=== PATIENT | female | born 1975 | race Caucasian/White ===

== ENCOUNTER 2016-09-22 18:54 | Emergency (ER) | payer BC ==
[~2016-09-22] VITALS: Ht 162.6 cm; Wt 61.0 kg
[~2016-09-22 18:54] MED LIST: HYDR-906 PO; NAPR-688 PO; ONDA4TAB8 PO; OXYC-279 PO; [UNRECOGNIZED DRUG - CODE] RC
[2016-09-22 18:58] VITALS: Ht 162.6 cm; Wt 61.0 kg
[2016-09-22] MEDS ORDERED: ONDANSETRON 4 MG INJ IV STA (21:50)
[2016-09-22] MEDS ORDERED: morphine 4 MG/ML VIAL IV STA ×2 (21:50→23:01)
[2016-09-22] MEDS ORDERED: SOD CHLORIDE 0.9% 1,000 ML IV ONE (22:00)
[2016-09-22 22:50] LABS: BASOPHIL # 0.1 10^3/ul (0.0-0.1); BASOPHILS % 0.9 % (0.0-2.0); EOSINOPHILS # 0.4 10^3/ul (0.0-0.5); EOSINOPHILS % 6.1 % (0.0-7.0); HEMATOCRIT 36.6 % (37.0-47.0); HEMOGLOBIN 12.1 g/dl (12.0-16.0); LYMPHOCYTES # 3.2 10^3/ul (0.8-2.9); LYMPHOCYTES % 45.1 % (15.0-51.0); MEAN CORPUSCULAR HEMOGLOBIN 26.9 pg (29.0-33.0); MEAN CORPUSCULAR HGB CONC 33.1 g/dl (32.0-37.0); MEAN CORPUSCULAR VOLUME 81.4 fl (82.0-101.0); MEAN PLATELET VOLUME 7.4 fl (7.4-10.4); MONOCYTE # 0.6 10^3/ul (0.3-0.9); MONOCYTES % 7.8 % (0.0-11.0); NEUTROPHIL # 2.9 10^3/ul (1.6-7.5); NEUTROPHILS % 40.1 % (39.0-77.0); PLATELET COUNT 361 10^3/UL (140-440); RED BLOOD COUNT 4.49 10^6/ul (4.20-5.40); RED CELL DISTRIBUTION WIDTH 16.7 % (11.5-14.5); UNCORRECTED WBC 7.1 10^3/ul (4.8-10.8); WHITE BLOOD COUNT 7.1 10^3/ul (4.8-10.8)
[2016-09-22 22:56] LABS: CONDITION 1; LH ANALYZER COMMENTS 1
[2016-09-22 23:08] LABS: ADD UMIC YES; URINE BILIRUBIN (Dip) NEGATIVE (NEGATIVE); URINE BLOOD (Dip) NEGATIVE (NEGATIVE); URINE COLOR LT. YELLOW (YELLOW); URINE GLUCOSE (Dip) NEGATIVE (NEGATIVE); URINE KETONES (Dip) NEGATIVE (NEGATIVE); URINE LEUKOCYTE ESTERASE (Dip) TRACE (NEGATIVE); URINE NITRITE (Dip) NEGATIVE (NEGATIVE); URINE TOTAL PROTEIN (Dip) NEGATIVE (NEGATIVE); URINE UROBILINOGEN (Dip) 0.2 E.U./dL (0.1-1.0)
[2016-09-22 23:09] LABS: ALBUMIN 3.6 g/dl (3.3-4.9)
[2016-09-22 23:10] LABS: POTASSIUM 4.1 mmol/L (3.5-5.1)
[2016-09-22 23:12] LABS: BILIRUBIN,INDIRECT 0.1 mg/dl (0-1.1); BILIRUBIN,TOTAL 0.1 mg/dl (0.2-1.3); CREATININE 0.67 mg/dl (0.44-1.00)
[2016-09-22 23:13] LABS: ALBUMIN/GLOBULIN RATIO 0.97; CALCIUM 8.6 mg/dl (8.4-10.2); TOTAL PROTEIN 7.3 g/dl (6.1-8.1)
[2016-09-22 23:21] LABS: SQUAMOUS EPITHELIAL CELL,UR MODERATE; URINE RBCS NONE SEEN /HPF (0)
[2016-09-22 23:22] LABS: BACTERIA,URINE FEW; MUCUS,URINE FEW
[2016-09-22] MEDS ORDERED: LIDOCAINE/MYLANTA 40 ML BTL PO ONE (23:30)
--- NOTE | 2016-09-22 23:34 | RADRPT ---
PROCEDURE: CT Abdomen and Pelvis without contrast. CLINICAL INDICATION: Abdominal pain, status post recent cholecystectomy. TECHNIQUE: A CT scan of the abdomen and pelvis was performed without intravenous contrast. Rodriguez l and sagittal reformatted images were generated. Images were reviewed on a high-resolution PACS wor kstation. CTDIvol: 7.48 mGy. DLP: 397.17 mGy-cm. COMPARISON: CT of the abdomen and pelvis dated 07/20/2016, abdominal ultrasound dated 07/21/2016. FINDINGS: There is mild atelectasis in both lower lobes. Evaluation of the abdominal and pelvic viscera is limited by the lack of oral and intravenous contra st. The liver is unremarkable. The patient is status post cholecystectomy. No fluid collection is identi fied in the cholecystectomy bed. The common bile duct is not dilated. The spleen is not enlarged. No pancreatic lesion is identified and there is no pancreatic ductal dilatation. The adrenal glands ar e unremarkable. The kidneys are normal in size. There is no perinephric fat stranding. No hydronephrosis is seen. No urinary stone is identified. The small and large bowel are normal in caliber. There is no bowel wall thickening. The appendix is normal. The urinary bladder is unremarkable. The pelvic organs are within normal limits. There is a small vo lume of pelvic ascites. No lymphadenopathy is identified. No pneumoperitoneum is seen. There are no arterial calcifications. No suspicious osseous lesion is idenitified. IMPRESSION: 1. Status post cholecystectomy. There is no evidence of postoperative complication. 2. Normal appendix. 3. No obstructive uropathy or urinary stone. 4. Small volume of pelvic ascites. RPTAT: HTAR .Sy Weeks MD, Date Time Electronically viewed and signed by .Sy Weeks MD, MD on 09/22/2016 23:33 .R/
[2016-09-23] MEDS ORDERED: OXYC-279 PO (00:45)
[2016-09-23] MEDS ORDERED: ONDA4TAB11 PO (00:47)
[2016-09-23 00:57] VITALS: BP 101/77; PULSE 76; RESP 20; TEMP 98.5
--- NOTE | 2016-09-23 00:59 | ERD ---
ER Documentation Chief Complaint Date/Time DATE: 09/23/16 TIME: 00:49 Chief Complaint sp cholecystectomy,upper abd pain today HPI 41-year-old female presents with epigastric and right upper quadrant abdominal pain has been present since her surgery on September 05. Showed a cholecystectomy at that time. She just ran out of her Percocet prescription has increasing pain. EKG has nausea denies fever chills. Denies constipation states she is on medicine for that. ROS All systems reviewed and are negative except as per history of present illness. Medications Home Meds Active Scripts Ondansetron (Zofran Odt) 4 Mg Tab.rapdis, 4 MG PO Q6, #10 Prov:DARRONITA DO 09/23/16 Oxycodone HCl/Acetaminophen (Percocet 5-325 mg Tablet) 1 Each Tablet, 1 EACH PO Q6, #16 TAB Prov:DARRONITA DO 09/23/16 Oxycodone HCl/Acetaminophen (Percocet 5-325 mg Tablet) 1 Each Tablet, 1 EACH PO Q6 Y for SEVERE PAIN LEVEL 7-10, #10 TAB Prov:DARRONITA DO 07/22/16 Naproxen* (Naproxen*) 500 Mg Tablet, 500 MG PO BID Y for PAIN, #20 TAB Prov:DARRONITA DO 07/22/16 Promethazine HCl (Promethazine HCl) 12.5 Mg Supp.rect, 12.5 MG RC QHS for 7 Days , SUPP.RECT Prov:SHIRLEY POWELL DO 07/21/16 Ondansetron Hcl* (Zofran*) 4 Mg Tablet, 4 MG PO Q8H Y for NAUSEA AND/OR VOMITING , #15 TAB Prov:SHIRLEY POWELL DO 07/20/16 Hydrocodone/Acetaminophen (Bend 5-325 Tablet) 1 Each Tablet, 1 TAB PO Q6H Y for PAIN, #20 TAB Prov:SHIRLEY POWELL DO 07/20/16 Allergies Allergies: Coded Allergies: No Known Allergy (Unverified , 07/21/16) PMhx/Soc History of Surgery: Yes (cholecystectomy 09/05/16) Anesthesia Reaction: No Hx Neurological Disorder: No Hx Respiratory Disorders: No Hx Cardiac Disorders: No Hx Psychiatric Problems: No Hx Miscellaneous Medical Probl: No Hx Alcohol Use: No Hx Substance Use: No Hx Tobacco Use: No Smoking Status: Never smoker Physical Exam Vitals Vital Signs Date Time Temp Pulse Resp B/P Pulse Ox O2 Delivery O2 Flow Rate FiO2 09/22/16 22:20 98.2 72 16 133/93 100 Room Air 09/22/16 18:58 98.5 89 20 128/88 100 Physical Exam Const: [] No distress Head: Atraumatic Eyes: Normal Conjunctiva ENT: Normal External Ears, Nose and Mouth. Neck: Full range of motion..~ No meningismus. Resp: Clear to auscultation bilaterally Cardio: Regular rate and rhythm, no murmurs Abd: Soft, , Mild right upper quadrant epigastric abdominal tenderness without guarding or rebound,non distended. Normal bowel sounds Skin: No petechiae or rashes Back: No midline or flank tenderness Ext: No cyanosis, or edema Neur: Awake and alert nor a 3, no focal deficits Psych: Normal Mood and Affect Result Diagram: 09/22/16221209/22/163 Results 24 hrs Laboratory Tests Test 09/22/16 22:13 Alanine Aminotransferase (ALT/SGPT) 23IU/L Albumin 3.6g/dl Albumin/Globulin Ratio 0.97 Alkaline Phosphatase 84IU/L Anion Gap 13 Aspartate Amino Transf (AST/SGOT) 23IU/L Basophils # 0.110^3/ul Basophils % 0.9% Blood Morphology Comment Blood Urea Nitrogen 13mg/dl Calcium Level 8.6mg/dl Carbon Dioxide Level 28mmol/L Chloride Level 102mmol/L Creatinine 0.67mg/dl Direct Bilirubin 0.00mg/dl Eosinophils # 0.410^3/ul Eosinophils % 6.1% Globulin 3.70g/dl Glucose Level 95mg/dl Hematocrit 36.6% Hemoglobin 12.1g/dl Indirect Bilirubin 0.1mg/dl Lipase 123U/L Lymphocytes # 3.210^3/ul Lymphocytes % 45.1% Mean Corpuscular Hemoglobin 26.9pg Mean Corpuscular Hemoglobin Concent 33.1g/dl Mean Corpuscular Volume 81.4fl Mean Platelet Volume 7.4fl Monocytes # 0.610^3/ul Monocytes % 7.8% Neutrophils # 2.910^3/ul Neutrophils % 40.1% Nucleated Red Blood Cells # 0.010^3/ul Nucleated Red Blood Cells % 0.0/100WBC Platelet Count 32319^3/UL Potassium Level 4.1mmol/L Red Blood Count 4.4910^6/ul Red Cell Distribution Width 16.7% Sodium Level 139mmol/L Total Bilirubin 0.1mg/dl Total Protein 7.3g/dl Urine Bacteria FEW Urine Bilirubin NEGATIVE Urine Clarity SLIGHTLY CLOUDY Urine Color LT. YELLOW Urine Glucose NEGATIVE% Urine Hemoglobin NEGATIVE Urine Ketones NEGATIVE Urine Leukocyte Esterase TRACE Urine Microscopic RBC NONE SEEN/HPF Urine Microscopic WBC 25-50/HPF Urine Mucus FEW Urine Nitrite NEGATIVE Urine Specific [place] 1.020 Urine Squamous Epithelial Cells MODERATE Urine Total Protein NEGATIVE Urine Urobilinogen 0.2 E.U./dL Urine pH 7.0 White Blood Count 7.110^3/ul Current Medications Medications (Trade) Dose Ordered Sig/Negro Route PRN Reason Start Time Stop Time Status Last Admin Dose Admin Sodium Chloride (NS) 1,000 ml @ 1,000 mls/hr Q1H ONCE IV 09/22/16 22:00 09/22/16 22:59 DC 09/22/16 22:35 Morphine Sulfate (morphine) 4 mg ONCE STAT IV 09/22/16 21:50 09/22/16 21:52 DC 09/22/16 22:35 Ondansetron HCl (Zofran Inj) 4 mg ONCE STAT IV 09/22/16 21:50 09/22/16 21:52 DC 09/22/16 22:35 Miscellaneous Medication (Gi Cocktail (2)) 40 ml ONCE ONCE PO 09/22/16 23:30 09/22/16 23:31 DC 09/22/16 23:38 Morphine Sulfate (morphine) 4 mg ONCE STAT IV 09/22/16 23:01 09/22/16 23:02 DC 09/22/16 23:05 Procedures/MDM 41-year-old female postop abdominal pain. She did run out of her Percocet recently. She was given morphine as well as a GI cocktail emergency room. It resolved her pain. There is no surgical emergency found and her workup. Neurologic abdominal fluid collection could be an abscess, no signs of internal bleeding. There is no free air that would suggest perforated viscus. She was also hydrated with liter of normal saline and given Zofran with the pain medication. She has stable vital signs and no signs of sepsis or postop infection. He is feeling much better the emergency room. I called and spoke with Dr. Duque, the surgeon who performed the surgery, he agrees with discharge and will see her in his office. Discharging her with Dr. lau information instructions to call tomorrow for a follow-up appointment. Ernesto discharging with 16 Percocet and some Zofran ODT.. CT abdomen and pelvis interpretation: Normal postop changes, I see no free air, no obstruction, no constipation, no abnormal fat stranding, no bony abnormalities. Departure Diagnosis: Primary Impression: Acute abdominal pain Additional Impression: Post-op pain Condition: Stable Patient Instructions: Abdominal Pain, Unknown Cause, (Female), Post Op Wound Check, Pain Referrals: SAMUEL HUSSEIN MD Additional Instructions: Call your surgeon doctor TOMORROW for an appointment during the next 2-3 days.See the doctor sooner or return here if your condition worsens before your appointment time. ITA ROB DO Sep 23, 2016 00:58
== END 2016-09-23 01:07 | disposition home or self-care (01) ==
LOC: E/R 18:54
DX: R10.13 Epigastric pain (principal); R11.0 Nausea; R10.11 Right upper quadrant pain; G89.18 Other acute postprocedural pain
CPT/HCPCS: 36415; 74176; 80053; 81001; 83690; 85025; 93005; 96374; 96375; 96376; J2270; J2405; J7030; Z7502; Z7610; 81003

== ENCOUNTER 2016-12-30 19:38 | Emergency (ER) | payer BC ==
[~2016-12-30] VITALS: Ht 157.5 cm; Wt 59.0 kg
[~2016-12-30 19:38] MED LIST changes: +ONDA4TAB11 PO
[2016-12-30 20:17] VITALS: Ht 157.5 cm; Wt 59.0 kg
[2016-12-30] MEDS ORDERED: ACETAMINOPHEN 500 MG TAB PO STA (20:45)
[2016-12-30] MEDS ORDERED: ONDANSETRON (ODT) 4 MG TAB ODT STA (20:45)
[2016-12-30 21:21] LABS: ADD UMIC YES; URINE BILIRUBIN (Dip) NEGATIVE (NEGATIVE); URINE BLOOD (Dip) 2+ (NEGATIVE); URINE COLOR YELLOW (YELLOW); URINE GLUCOSE (Dip) NEGATIVE (NEGATIVE); URINE KETONES (Dip) 40 (NEGATIVE); URINE LEUKOCYTE ESTERASE (Dip) TRACE (NEGATIVE); URINE NITRITE (Dip) NEGATIVE (NEGATIVE); URINE TOTAL PROTEIN (Dip) TRACE (NEGATIVE); URINE UROBILINOGEN (Dip) 1.0 E.U./dL (0.1-1.0)
[2016-12-30 21:39] LABS: BACTERIA,URINE FEW; MUCUS,URINE MODERATE; SQUAMOUS EPITHELIAL CELL,UR MODERATE
--- NOTE | 2016-12-30 21:50 | RADRPT ---
PROCEDURE: XR Chest. CLINICAL INDICATION: Fever. TECHNIQUE: Portable AP upright view of the chest was obtained. COMPARISON: 07/19/2016 FINDINGS: The cardiomediastinal silhouette is within normal limits. The lungs are clear. There is no evidenc e for pleural effusion, pneumothorax or pulmonary vascular congestion. The osseous structures are i ntact with no evidence for acute abnormality. RPTAT:HJJR IMPRESSION: No evidence for acute intrathoracic pathology or change from 07/19/2016. Physician Mary Date Time Electronically viewed and signed by Tommie Whitfield Physician on 12/30/2016 21:49 JR/
[2016-12-30 23:18] LABS: ADD SCAN DIFF NO
[2016-12-30 23:22] LABS: BASOPHILS % 0.2 % (0.0-2.0); EOSINOPHILS % 0.1 % (0.0-7.0); HEMATOCRIT 35.8 % (37.0-47.0); MEAN CORPUSCULAR HEMOGLOBIN 28.8 pg (29.0-33.0); MEAN CORPUSCULAR HGB CONC 33.5 g/dl (32.0-37.0); MEAN CORPUSCULAR VOLUME 85.9 fl (82.0-101.0); MONOCYTE # 1.3 10^3/ul (0.3-0.9); MONOCYTES % 8.8 % (0.0-11.0); NEUTROPHIL # 8.9 10^3/ul (1.6-7.5); NEUTROPHILS % 62.6 % (39.0-77.0); PLATELET COUNT 276 10^3/UL (140-415); RED BLOOD COUNT 4.17 10^6/ul (4.20-5.40); RED CELL DISTRIBUTION WIDTH 15.7 % (11.5-14.5); WHITE BLOOD COUNT 14.2 10^3/ul (4.8-10.8)
--- NOTE | 2016-12-30 23:23 | RADRPT ---
PROCEDURE: CT abdomen and pelvis without contrast. CLINICAL INDICATION: Abdominal and flank pain with prior history of gallstones TECHNIQUE: CT scan of the abdomen and pelvis without contrast was performed on a multislice CT [facility] utilizing axial imaging from the lung bases through the pubis symphysis. The patient was scann ed without intravenous contrast. Sagittal and coronal reformatted images were made. The CTDIvol is 7.14 mGy and the DLP is 369.88 mGycm. One of the following 3 dose reduction techniques were used during this CT examination: automated exp osure control; adjustment of the mA and /or kV according to patient size; or use of iterative recons truciton technique. COMPARISON: 09/22/2016 CT abdomen and pelvis FINDINGS: The lung bases are clear. The heart size is normal. No pericardial or pleural effusion is present. The visualized liver, spleen, pancreas, and bilateral adrenal glands are normal. The bilateral kidn eys are normal and symmetric. No evidence for hydroureter nephrosis or nephroureterolithiasis is pr esent. The patient is status post cholecystectomy changes. No evidence for intrahepatic or extrahepatic bi liary ductal dilatation is present. The visualized bowel is nonobstructive. No evidence for diverticulosis, diverticulitis, or appendic itis is present. The visualized uterus is mildly enlarged. The adnexa is normal. No evidence for pelvic masses are noted. The urinary bladder is decompressed. No evidence for pneumoperitoneum or ascites is present . No pelvic mass, lymphadenopathy, or free fluid is seen. There is no evidence of free air. No aneur ysmal dilatation of the aorta is evident. The surrounding osseous structures are normal. IMPRESSION: 1. No CT evidence for acute intra-abdominal or pelvic pathology. 2. Status post cholecystectomy changes 3. Mild enlargement of the uterus and consider pelvic ultrasound to further evaluate. RPTAT: HDC .April Crespo MD, Date Time Electronically viewed and signed by .April Crespo MD, MD on 12/30/2016 23:23 .C/
--- NOTE | 2016-12-30 23:28 | ERD ---
ER Documentation Chief Complaint Date/Time DATE: 12/30/16 TIME: 23:[address] and magalys ear pain x3 days, Right flank pain x2 weeks HPI This is a 41-year-old female that presents to the ER with multiple complaints. Patient has had a fever for the last 3 days. She is also complaining of sore throat, bilateral ear pain. Patient denies any cough. Patient is additionally complaining of right-sided flank pain with urinary frequency and dysuria. She she does admit to nausea however denies any vomiting or diarrhea. Patient is also complaining of frontal headache that is throbbing and worse whenever she has a fever. She denies any neck stiffness. Patient is also complaining of entire body pain. Patient's appetite has been decreased. She did not get a flu shot this year. Patient has been taking ibuprofen for her symptoms however has not worked. ROS 12 point review of systems was done, all negative except per HPI. Medications Home Meds Active Scripts Ondansetron Hcl* (Zofran*) 4 Mg Tablet, 4 MG PO Q6H for NAUSEA AND/OR VOMITING, #30 TAB Prov:CHARLES VALLES 12/30/16 Acetaminophen* (Tylenol*) 500 Mg Tab, 1000 MG PO Q8H Y for PAIN AND OR ELEVATED TEMP for 5 Days, TAB Prov:CHARLES VALLES 12/30/16 Naproxen* (Naprosyn*) 500 Mg Tablet, 500 MG PO BID Y for PAIN AND/OR INFLAMMATION, #30 TAB Prov:CHARLES VALLES 12/30/16 Ondansetron (Zofran Odt) 4 Mg Tab.rapdis, 4 MG PO Q6, #10 Prov:ITA ROB DO 09/23/16 Oxycodone HCl/Acetaminophen (Percocet 5-325 mg Tablet) 1 Each Tablet, 1 EACH PO Q6, #16 TAB Prov:ITA ROB DO 09/23/16 Oxycodone HCl/Acetaminophen (Percocet 5-325 mg Tablet) 1 Each Tablet, 1 EACH PO Q6 Y for SEVERE PAIN LEVEL 7-10, #10 TAB Prov:ITA ROB DO 07/22/16 Naproxen* (Naproxen*) 500 Mg Tablet, 500 MG PO BID Y for PAIN, #20 TAB Prov:ITA ROB DO 07/22/16 Promethazine HCl (Promethazine HCl) 12.5 Mg Supp.rect, 12.5 MG RC QHS for 7 Days , SUPP.RECT Prov:SHIRLEY POWELL DO 07/21/16 Ondansetron Hcl* (Zofran*) 4 Mg Tablet, 4 MG PO Q8H Y for NAUSEA AND/OR VOMITING , #15 TAB Prov:SHIRLEY POWELL DO 07/20/16 Hydrocodone/Acetaminophen ([place] 5-325 Tablet) 1 Each Tablet, 1 TAB PO Q6H Y for PAIN, #20 TAB Prov:SHIRLEY POWELL DO 07/20/16 Allergies Allergies: Coded Allergies: No Known Allergy (Unverified , 07/21/16) PMhx/Soc History of Surgery: Yes (cholecystectomy 09/05/16) Anesthesia Reaction: No Hx Neurological Disorder: No Hx Respiratory Disorders: No Hx Cardiac Disorders: No Hx Psychiatric Problems: No Hx Miscellaneous Medical Probl: No Hx Alcohol Use: No Hx Substance Use: No Hx Tobacco Use: No Smoking Status: Never smoker Physical Exam Vitals Vital Signs Date Time Temp Pulse Resp B/P Pulse Ox O2 Delivery O2 Flow Rate FiO2 12/30/16 20:17 99.4 111 18 137/83 98 Physical Exam GENERAL: The patient is well developed and appropriate for usual state of health , in no apparent distress. HEENT: Atraumatic. Conjunctivae are pink. Pupils equal, round, and reactive to light. Extraocular muscles are grossly intact. Bilateral tympanic membranes are clear with no evidence of erythema, effusion or dulling of the light reflex. The oropharynx is clear with no erythema or exudates. NECK: C-spine is soft and supple. There is no cervical lymphadenopathy. Negative Kernig negative for density CHEST: Clear to auscultation bilaterally. There are no rales, wheezes or rhonchi. HEART: Regular rate and rhythm. No murmurs, clicks, rubs or gallops. ABDOMEN: Soft, nondistended. Tender to palpation in the right lower quadrant and left lower quadrant. Good bowel sounds. No rebound or guarding. No gross peritonitis. No gross organomegaly or masses. No Wu sign or McBurney point tenderness. BACK: No midline or flank tenderness. No CVA tenderness. NEURO: Alert and oriented. Cranial nerves II through XII are intact. Negative Romberg. Result Diagram: 12/30/16 2310 12/30/16 2310 Results 24 hrs Laboratory Tests Test 12/30/16 20:50 12/30/16 23:10 Urine Color YELLOW Urine Clarity HAZY Urine pH 6.0 Urine Specific [place] 1.025 Urine Ketones 40 Urine Nitrite NEGATIVE Urine Bilirubin NEGATIVE Urine Urobilinogen 1.0 E.U./dL Urine Leukocyte Esterase TRACE Urine Microscopic RBC 2-5/HPF Urine Microscopic WBC 2-5/HPF Urine Squamous Epithelial Cells MODERATE Urine Bacteria FEW Urine Mucus MODERATE Urine Hemoglobin 2+ Urine Glucose NEGATIVE% Urine Total Protein TRACE White Blood Count 14.210^3/ul Red Blood Count 4.1710^6/ul Hemoglobin 12.0g/dl Hematocrit 35.8% Mean Corpuscular Volume 85.9fl Mean Corpuscular Hemoglobin 28.8pg Mean Corpuscular Hemoglobin Concent 33.5g/dl Red Cell Distribution Width 15.7% Platelet Count 89867^3/UL Mean Platelet Volume 9.0fl Neutrophils % 62.6% Lymphocytes % 28.0% Monocytes % 8.8% Eosinophils % 0.1% Basophils % 0.2% Nucleated Red Blood Cells % 0.0/100WBC Neutrophils # 8.910^3/ul Lymphocytes # 4.010^3/ul Monocytes # 1.310^3/ul Eosinophils # 0.010^3/ul Basophils # 0.010^3/ul Nucleated Red Blood Cells # 0.010^3/ul Sodium Level 133mmol/L Potassium Level 3.7mmol/L Chloride Level 103mmol/L Carbon Dioxide Level 23mmol/L Anion Gap 11 Blood Urea Nitrogen 9mg/dl Creatinine 0.62mg/dl Glucose Level 99mg/dl Calcium Level 8.1mg/dl Total Bilirubin 0.4mg/dl Direct Bilirubin 0.00mg/dl Indirect Bilirubin 0.4mg/dl Aspartate Amino Transf (AST/SGOT) 21IU/L Alanine Aminotransferase (ALT/SGPT) 36IU/L Alkaline Phosphatase 99IU/L Total Protein 6.6g/dl Albumin 3.2g/dl Globulin 3.40g/dl Albumin/Globulin Ratio 0.94 Lipase 40U/L Current Medications Medications (Trade) Dose Ordered Sig/Negro Route PRN Reason Start Time Stop Time Status Last Admin Dose Admin Acetaminophen (Tylenol Tab) 1,000 mg ONCE STAT PO 12/30/16 20:45 12/30/16 20:49 DC 12/30/16 20:57 Ondansetron HCl (Zofran Odt) 4 mg ONCE STAT ODT 12/30/16 20:45 12/30/16 20:49 DC 12/30/16 20:57 Procedures/MDM This is a 41-year-old female presents to the ER with multiple complaints. This is likely viral in etiology. Patient did have some leukocytosis which could be due to viral process. There is no evidence of urinary tract infection on urinalysis. Suspicion for pyelonephritis is low. Suspicion for intra- abdominal process is low. Her CT scan is negative for acute abdomen. I doubt otitis media, strep throat, pneumonia. Doubt meningitis or sepsis, as patient is neurologically intact with no focal neurological deficits. She has not had any history of head trauma I doubt acute intracranial pathology. Patient will be sent home with Tylenol, Zofran and naproxen. She is to follow-up with her primary care doctor within 1-2 days return to ER sooner if symptoms worsen. I discussed this case with Dr. Hamilton and he agrees with my medical decision making. my medical decision-making was shared with the patient and his asthma agrees with plan. Departure Diagnosis: Primary Impression: Multiple complaints Condition: Stable CHARLES VALLES Dec 30, 2016 23:28
[2016-12-30] MEDS ORDERED: ONDA4TAB8 PO (23:31)
[2016-12-30] MEDS ORDERED: TYL500 PO (23:31)
[2016-12-30] MEDS ORDERED: NAPR-260 PO (23:31)
[2016-12-30 23:38] LABS: ALBUMIN 3.2 g/dl (3.3-4.9); ALBUMIN/GLOBULIN RATIO 0.94; BILIRUBIN,INDIRECT 0.4 mg/dl (0-1.1); BILIRUBIN,TOTAL 0.4 mg/dl (0.2-1.3); CALCIUM 8.1 mg/dl (8.4-10.2); CREATININE 0.62 mg/dl (0.44-1.00); POTASSIUM 3.7 mmol/L (3.5-5.1); TOTAL PROTEIN 6.6 g/dl (6.1-8.1)
== END 2016-12-31 00:18 | disposition home or self-care (01) ==
LOC: FTE 19:38
DX: J02.9 Acute pharyngitis, unspecified (principal); H92.03 Otalgia, bilateral; R10.31 Right lower quadrant pain; R10.32 Left lower quadrant pain; R11.0 Nausea; R51 Headache; R50.9 Fever, unspecified
CPT/HCPCS: 71010; 74176; 80053; 81001; 83690; 85025; 87400; Z7610; 81003